=== PATIENT | male | born 1960 | race Caucasian/White ===

== ENCOUNTER 2019-01-29 00:57 | Day surgery (SDC) | payer OTHER ==
[~2019-01-29] VITALS: Ht 167.6 cm; Wt 66.7 kg
[~2019-01-29 00:57] MED LIST: ASPI-1471 PO; ASPI81TA94 PO; NONE REPORTED; ROSU10TA PO
[2019-01-29] MEDS ORDERED: LIDOCAINE MPF 1% 5 ML VIAL ONE (08:17)
[2019-01-29] MEDS ORDERED: ONDANSETRON 4 MG/2 ML VIAL ONE (08:17)
[2019-01-29] MEDS ORDERED: PROPOFOL EMUL(*) 10MG/ML 20 ML 20 ML ONE (08:17)
[2019-01-29] MEDS ORDERED: DEXAMETHASONE SOD 4 MG/ML VIAL ONE (08:17)
[2019-01-29] MEDS ORDERED: fentaNYL CITR 100 MCG/2 ML AMP ONE ×2 (08:18→11:40)
[2019-01-29] MEDS ORDERED: KETAMINE HCL 200 MG/20 ML MDV ONE (08:23)
[2019-01-29 08:45] VITALS: BP 135/86
[2019-01-29] MEDS ORDERED: LIDOCAINE/SOD BICARB 8.4% SYR ID ONE (09:15)
[2019-01-29] MEDS ORDERED: NORMOSOL R SOLN(*) 1000 ML BAG 1,000 ML IV PRN (09:15)
[2019-01-29] MEDS ORDERED: ROPIVACAINE 0.5% 20 ML VIAL ONE (10:23)
[2019-01-29] MEDS ORDERED: MIDAZOLAM 2 MG/2 ML VIAL IVP PRN (10:30)
[2019-01-29] MEDS ORDERED: DOCU-416 PO (11:21)
--- NOTE | 2019-01-29 11:25 | Short(Outpt) Discharge Summary ---
Discharge Summary Reason for Hosp/Final Diag: (1) BRBPR (bright red blood per rectum) Status: Chronic Hospital Course & Plan: Anal EUA with internal hemorrhoid banding completed without problems. (2) Hemorrhoids Status: Chronic Departure Discharge to: Home, Self Care Discharge Instructions Home Meds Active Scripts Docusate Sodium (COLACE) 100 Mg Capsule, 1 CAP PO BID, #30 CAP 0 Refills TAKE WITH A FULL GLASS OF WATER Prov:MITA WHITMORE MD 01/29/19 Reported Medications Aspirin (ASPIRIN) 81 Mg Tab.chew, 81 MG PO QDAY, TAB.CHEW 01/22/19 Discontinued Reported Medications Rosuvastatin Calcium (CRESTOR) 10 Mg Tab, 10 MG PO QDAY, #5 TAB 12/31/18 Follow up Referrals: General Surgery - 02/11/19 @ Surgery, General with MITA WHITMORE MD You have a follow up appointment scheduled with Dr. Whitmore on 02/11/19, at 9:15am. Diet: Regular Activity: As Tolerated Special Instructions: I banded 5 hemorrhoids. Take a stool softener every day until you start having bowel movements without problems. You may see blood from your rectum for the next week or two as the hemorrhoids shrivel up and fall out. Problem Qualifiers (1) Hemorrhoids: Hemorrhoid type: second degree Qualified Codes: K64.1 - Second degree hemorrhoids MITA WHITMORE MD January 29, 2019 11:25
--- NOTE | 2019-01-29 11:35 | Post Operative Progress Note ---
Post Operative Progress Note Date: January 29, 2019 Time: 11:26 Surgeon: Dax Dictation number: [id number] Anesthesia: LMA by Dr. Moon Pre-Op Diagnosis: BRBPR Internal Hemorrhoids Post-Op Diagnosis: [facility] Findings: C/W dx Procedure(s): Anal exam under anesthesia Specimen Removed:(May be N/A): None Complications: None Fluids: See anesthesia record Estimated Blood Loss: Minimal Date OP Note Dictated: January 29, 2019 Time OP Note Dictated: 11:30 MITA WHITMORE MD January 29, 2019 11:35
--- NOTE | 2019-01-29 12:11 | OPERATIVE REPORT 1 ---
EVENT DATE: January 29, 2019 SURGEON: Wilber Verduzco MD ANESTHESIOLOGIST: Timbo Caputo MD ANESTHESIA: LMA PREOPERATIVE DIAGNOSIS 1. Bright red blood per rectum. 2. Internal hemorrhoids. POSTOPERATIVE DIAGNOSIS 1. Bright red blood per rectum. 2. Internal hemorrhoids. PROCEDURE PERFORMED Anal exam under anesthesia with internal hemorrhoid banding, a total of 5 hemorrhoids were banded. COMPLICATIONS None. CONDITION Stable. ESTIMATED BLOOD LOSS Minimal. INDICATIONS This is a 59-year-old gentleman who presented to my office with frequent bright red blood per rectum and he occasionally feels hemorrhoids protruding from his anus. On exam, he had some minor external skin tags, but there were not any prolapsing hemorrhoids at the time of my exam. I consented him for anal exam under anesthesia with internal hemorrhoidal banding if present. DESCRIPTION OF PROCEDURE The patient was brought to the operating room and placed supine on the operating table. LMA anesthesia was administered and his legs were placed in Candy-Cane stirrups. His perianal region was prepped and draped in sterile fashion. A timeout was completed and then I used the anal speculum and identified a moderate sized grade II internal hemorrhoids and these were treated with rubber- band ligation using a suction rubber-band ligator well up from the dentate line. There were a total of 5 areas that I banded circumferentially and when I was done there were no significant internal hemorrhoids that had not been addressed. He was then awakened and LMA removed and brought to the recovery room in good condition having tolerated the procedure without any apparent problems. MARTIN
[2019-01-29 12:23] VITALS: BP 124/86
[2019-01-29 12:54] VITALS: BP 114/69
[2019-01-29 12:59] VITALS: BP 116/83
== END 2019-01-29 12:23 | disposition home or self-care (01) ==
LOC: OR 00:57
PROVIDERS: ATTEND Surgery
DX: K62.5 Hemorrhage of anus and rectum (principal); K64.8 Other hemorrhoids
CPT/HCPCS: 46221; J1100; J2001; J2250; J2405; J2704; J2795; J3010; J3490